=== PATIENT | female | born 1950 | race Caucasian/White ===

== ENCOUNTER → 2023-06-20 09:06 | Outpatient (REF) | payer MEDICARE, SELFPAY ==
[2023-06-20 10:48] LABS: ALT (SGPT) 23 U/L (0-35); AST (SGOT) 26 U/L (14-36); Albumin 4.2 g/dl (3.5-5.0); Alkaline Phosphatase 67 U/L (38-126); Blood Urea Nitrogen 21 mg/dl (7-17); Calcium 10.2 mg/dl (8.4-10.2); Carbon Dioxide 28 mmol/L (22-30); Chloride 101 mmol/L (98-107); Glucose 98 mg/dl (70-99); Potassium 4.6 mmol/L (3.5-5.1); Sodium 139 mmol/L (135-145); Total Bilirubin 0.8 mg/dl (0.2-1.3); Total Protein 7.2 g/dl (6.3-8.2); eGFR > 60.00
== END ==
LOC: REG 09:06
PROVIDERS: ATTENDING PHYSICIAN Internal Medicine
DX: K86.2 Cyst of pancreas (principal)
CPT/HCPCS: 36415; 80053

== ENCOUNTER → 2023-06-27 12:53 | Outpatient (REF) | payer MEDICARE, SELFPAY | LOC: HWWDC 12:53 | PROVIDERS: ATTENDING PHYSICIAN Internal Medicine | DX: Z12.31 Encounter for screening mammogram for malignant neoplasm of breast (principal) | CPT/HCPCS: 77063; 77067 ==

== ENCOUNTER → 2023-07-02 18:42 | Outpatient (REF) | payer MEDICARE, SELFPAY | LOC: MRI 3T 18:42 | PROVIDERS: ATTENDING PHYSICIAN Internal Medicine | DX: K86.2 Cyst of pancreas (principal) | CPT/HCPCS: 74183; A9575 ==

== ENCOUNTER → 2023-11-27 09:59 | Outpatient (REF) | payer MEDICARE, SELFPAY ==
[2023-11-27 11:19] LABS: % Basophils 1.5 % (0-2); % Immature Granulocytes 0.2 % (0-0.5); % Lymphocytes 31.6 % (20.5-51.1); % Monocytes 9.7 % (1.7-9.3); Absolute Basophils 0.1 10^3/uL (0-0.2); Absolute Eosinophils 0.1 10^3/uL (0-0.7); Absolute Lymphocytes 1.9 10^3/uL (1.2-3.4); Absolute Monocytes 0.6 10^3/uL (0.1-0.6); Absolute Neutrophils 3.2 10^3/uL (1.4-6.5); Hematocrit 44.6 % (37.0-47.0); Hemoglobin 15.4 g/dL (12.0-16.0); Mean Corp Hgb Conc. 34.5 g/dL (33.0-37.0); Mean Corpuscular Hgb 30.1 pg (27.0-31.0); Mean Corpuscular Volume 87.1 fL (81.0-99.0); Mean Platelet Volume 10.4 fL (7.4-10.4); Nucleated Red Blood Cells % 0 %; Platelet Count 332 10^3/uL (130-400); Red Blood Cell Count 5.12 10^6/uL (4.20-5.40); Red Cell Dist. Width 12.5 % (11.5-14.5); White Blood Cell Count 5.9 10^3/uL (4.8-10.8)
[2023-11-27 11:38] LABS: Glycohemoglobin (HgbA1c) 5.6 % (4.0-5.6)
[2023-11-27 11:51] LABS: ALT (SGPT) 22 U/L (0-35); AST (SGOT) 26 U/L (14-36); Albumin 4.6 g/dl (3.5-5.0); Alkaline Phosphatase 72 U/L (38-126); Blood Urea Nitrogen 14 mg/dl (7-17); Carbon Dioxide 28 mmol/L (22-30); Chloride 98 mmol/L (98-107); Glucose 102 mg/dl (70-99); HDL Cholesterol 90 mg/dl; LDL Cholesterol, Calculated 130 mg/dl; Potassium 4.3 mmol/L (3.5-5.1); Sodium 136 mmol/L (135-145); Total Bilirubin 0.7 mg/dl (0.2-1.3); Total Cholesterol 231 mg/dl (50-199); Total Protein 7.5 g/dl (6.3-8.2); Triglyceride 56 mg/dl (10-149); Very Low Density Lipoprotein 11 mg/dl (0-30); eGFR > 60.00
[2023-11-27 12:21] LABS: TSH Reflex To Free T4 1.96 uIU/ml (0.47-4.68)
== END ==
LOC: REG 09:59
PROVIDERS: ATTENDING PHYSICIAN Internal Medicine
DX: R73.9 Hyperglycemia, unspecified (principal); M85.89 Other specified disorders of bone density and structure, multiple sites; I10 Essential (primary) hypertension; E78.01 Familial hypercholesterolemia
CPT/HCPCS: 36415; 80053; 80061; 83036; 84443; 85025

== ENCOUNTER → 2024-04-26 07:18 | Outpatient (REF) | payer MEDICARE, SELFPAY | LOC: PAVMRI 07:18 | PROVIDERS: ATTENDING PHYSICIAN Physical Medicine & Rehabilitation; FAMILY PHYSICIAN Internal Medicine | DX: M54.16 Radiculopathy, lumbar region (principal) | CPT/HCPCS: 72148 ==

== ENCOUNTER 2024-06-04 08:52 | Inpatient (IN) | payer MEDICARE, SELFPAY ==
[2024-06-03 10:52] LABS: Hematocrit 42.6 % (37.0-47.0); Hemoglobin 14.3 g/dL (12.0-16.0); Mean Corp Hgb Conc. 33.6 g/dL (33.0-37.0); Mean Corpuscular Hgb 29.5 pg (27.0-31.0); Mean Platelet Volume 10.4 fL (7.4-10.4); Platelet Count 383 10^3/uL (130-400); Red Blood Cell Count 4.84 10^6/uL (4.20-5.40); Red Cell Dist. Width 13.1 % (11.5-14.5); White Blood Cell Count 8.3 10^3/uL (4.8-10.8)
[2024-06-03 13:27] VITALS: BMI 23.5
[2024-06-04] VITALS (13 sets, daily range): BP systolic 140–170; BP diastolic 83–100; BMI 23.5
[2024-06-04] MEDS: NORMOSOL-R/PLASMALYTE-A 1000 IV (09:33)
--- NOTE | 2024-06-04 17:45 | PTCARENOTE ---
Received patient from PACU in her bed, R leg brace on, foot pump on L foot. Patient AAO x 3, denies pain. Assessment WNL, + pedal pulses bilaterally. She appears anxious and will talk at an extended length seemingly to herself. Patient assisted to
use BSC - she urinated successfully, then assisted to chair for her dinner. Chair alarm is in place. Refused aspirin at this time, stating she will take it with food when dinner arrives.
[2024-06-04] MEDS: ASPIRIN 325 MG PO (18:42)
[2024-06-04] MEDS: SENOKOT 17.2 MG PO (19:52)
[2024-06-04] MEDS: COLACE 100 MG PO (19:52)
[2024-06-04] MEDS: TYLENOL PO ×2 (20:06→23:23)
[2024-06-04] MEDS: MELATONIN 3 MG PO (22:49)
[2024-06-04] MEDS: ULTRAM 50 MG PO (22:51)
[2024-06-05] MEDS: ATIVAN 0.5 MG PO (00:58)
[2024-06-05 03:10] VITALS: BP 153/81
--- NOTE | 2024-06-05 03:20 | PTCARENOTE ---
Pt very anxious, speech is very disordered and manic. At begining of shift pt asking about her tramadol and asking for melatonin to sleep. pt refusing to take tylenol or ordered oxy. Covering donnie Hong contacted and orders in for 50 mg tramadol Q6
prn for pain. Pt later asking about Ativan, she states she used to take it. Covering ALICIA Tapia contacted and order in for one time PO ativan. Pt using call garcias appropriately, OOB to void on BSC assist x 1 with RW.
[2024-06-05] MEDS: TYLENOL PO ×4 (04:12→15:22)
[2024-06-05 07:20] VITALS: BP 150/98
--- NOTE | 2024-06-05 07:34 | W.PN.ORTHO ---
Today's Communication / Plan
-
PT/OT this morning
Knee immobilizer at all times
Partial weightbearing right lower extremity
Aspirin for DVT prophylaxis
Consult social service liaison to coordinate visiting nurses at home
Skin clip removal 2 weeks postop
Discharge to home today (discussed plan with nursing)
Assessment
.
Distal Motor Intact: Yes
Dressing:
Clean, dry and intact.
Plan
.
Surgery / Date: ORIF right patella fracture 05/25 [facility]
DVT Prophylaxis: Aspirin
Activity:
Out of bed.
PT/OT
Discharge Plan: Home w/ VN
Subjective
.
.:
Patient resting comfortably.
Vital Signs and Labs
.
Vital Signs and Labs:
Lab Results
06/03/24 09:47
Temp Pulse Resp BP Pulse Ox
98.3 F 69 16 153/81 99
06/05/24 03:10 06/05/24 03:10 06/05/24 03:10 06/05/24 03:10 06/05/24 03:10
Physical Exam
-
Knee immobilizer in place
--- NOTE | 2024-06-05 07:37 | W.PN.UPDATE ---
Update Note
Progress Note Update
Pt seen and examined.
Disorganized thought process is at baseline
pain well controlled
brace intact
plan pt and d/c today, pwb RLE in knee immobilizer 100%, fu kindra ESTES in 2 weeks.
--- NOTE | 2024-06-05 07:46 | W.DS.TRANS ---
DC Summary - Deputy Chief Counsel
-
Discharge Instructions:
Sleep Apnea Risk Low
Discharge Diagnosis/Procedures Open reduction internal fixation right patellar
fracture 06/04 Vikoren
Diet As tolerated
Activity With assistance,With Walker
Additional Activity Partial weightbearing right lower extremity in
the knee immobilizer
Knee immobilizer at all time right lower
extremity
Driving Restrictions No driving
Bathing Restrictions OK to Shower
Other Services VN
Wound Care Leave dressing/knee immobilizer in place at all
times until skin clip removal
Instructions:
Stand-Alone Forms:
Changes to Home Medications: No
Discharge Medications:
DC Medications w/original date entered in [employer]
B-complex with vitamin C 1 cap PO DAILY 05/09/16
magnesium hydroxide 400 mg/5 mL oral suspension 30 ml PO DAILYPRN PRN constipation ##0 06/01/16
tramadol 50 mg tablet 1 - 2 tab PO Q6HPRN PRN pain #90 tabs 06/02/16
Fish Oil 1 cap PO DAILY 06/03/24
acetaminophen 325 mg tablet 650 mg PO PRN PRN pain 06/03/24
multivitamin 1 tab PO DAILY 06/03/24
vitamin E 1 cap PO DAILY 06/03/24
meloxicam 7.5 mg tablet 7.5 mg PO DAILY 06/04/24
aspirin 325 mg tablet 325 mg PO DAILY Blood clot prevention/tx 30 days #30 tabs 06/05/24
docusate sodium 100 mg capsule 100 mg PO BID Constipation 14 days #28 caps 06/05/24
sennosides 8.6 mg tablet (Kaela-nikhil) 17.2 mg (2 x 8.6 mg) PO BID Constipation 14 days #56 tabs 06/05/24
Home Medication Changes
Pending Results: No
[2024-06-05] MEDS: COLACE PO (08:12)
[2024-06-05] MEDS: ASPIRIN 325 MG PO (08:12)
[2024-06-05] MEDS: SENOKOT PO (08:12)
[2024-06-05 08:55] VITALS: BP 152/97; O2SAT 97
[2024-06-05 09:56] VITALS: BP 172/97; O2SAT 98
[2024-06-05] MEDS: ULTRAM 50 MG PO ×2 (15:41→22:34)
[2024-06-05 15:45] VITALS: BP 148/98
--- NOTE | 2024-06-05 16:49 | CM ---
Met with pt - altered cognitive functioning, confused
Spoke with
PT lives with her in a 2 story home
Needs direction with ADL's, ambulating without device
DME - rolling walker, single point cane
SNF - denies past hx
HH- denies past hx
PCP - Jairo Mccann
Pharm - [facility]
PT/OT recs - SNF
Discussed with . Has PAC list
Requesting [facility] and may send referrals to SNF near [place]
Referrals sent in [facility]
Plan - SNF when bed/auth obtained
[2024-06-05] MEDS: COLACE 100 MG PO (20:27)
[2024-06-05] MEDS: SENOKOT 17.2 MG PO (20:27)
[2024-06-05] MEDS: TYLENOL 650 MG PO (20:27)
[2024-06-05 23:24] VITALS: BP 142/83
[2024-06-06] MEDS: TYLENOL PO ×4 (01:00→12:00)
--- NOTE | 2024-06-06 07:24 | W.PN.ORTHO ---
Today's Communication / Plan
-
PT/OT
Knee immobilizer at all times
Partial weightbearing right lower extremity
Aspirin for DVT prophylaxis x4 weeks
Skin clip removal 2 weeks postop
Maintain dressing
Recommended for SNF. Case Management consulted. Discharge when bed/auth obtained.
Assessment
.
Distal Motor Intact: Yes
Dressing:
Clean, dry and intact.
Plan
.
Surgery / Date: ORIF right patella fracture 05/25 [facility]
DVT Prophylaxis: Aspirin
Activity:
Out of bed.
PT/OT
Subjective
.
.:
Patient resting comfortably in bed
Vital Signs and Labs
.
Vital Signs and Labs:
Lab Results
06/03/24 09:47
Temp Pulse Resp BP Pulse Ox
98.5 F 72 18 142/83 96
06/05/24 23:24 06/05/24 23:24 06/05/24 23:24 06/05/24 23:24 06/05/24 23:24
Physical Exam
-
Knee immobilizer in place
[2024-06-06 07:50] VITALS: BP 151/98
[2024-06-06] MEDS: ASPIRIN 325 MG PO (08:40)
[2024-06-06] MEDS: SENOKOT PO (08:43)
[2024-06-06] MEDS: COLACE PO (08:43)
--- NOTE | 2024-06-06 10:11 | CM ---
CM following re: discharge planning.
Reviewed pt's chart, met with pt and spoke to pt's over the phone to update on discharge plan progress.
Discharge order noted. Both pt and her are aware, expressed their agreement with discharge. IMM reviewed, placed on chart, pt has a copy.
Both pt and her are aware that [facility] and [facility] offered a bed and pt and her preferred [facility].
CM spoke to [facility] liaison and she confirmed that [facility] has a [place] available and pt is accepted for admission today: [facility] . Accepting MD Coulter [id number]
An authorization initiated with [facility] care and community, , spoke to ambulatory service representative Brianna, clinical provided to Lora and based on pt's clinical, pt is approved for SNF level of care at [facility] for 5 initial days
starting today 06/06/24 till 06/10/24 with LCD and NRD 06/10/24. reviewer fax: [phone]. Authorization: [id number]. Auth information given to [facility] liaison.
to arrange transportation, BLS. PMNC completed and left with .
[facility] SN[facility] nursing repprt: [phone]
Discharge instructions fax: [phone]
D/C plan: [facility] today.
[2024-06-06 13:10] VITALS: BP 161/92
[2024-06-06] MEDS: ULTRAM 50 MG PO (13:18)
== END 2024-06-06 14:03 | DRG 517 ==
LOC: 2 SOUTH 08:52
PROVIDERS: ADMITTING PHYSICIAN Orthopaedic Surgery; FAMILY PHYSICIAN Internal Medicine
PROC: 0QSD04Z Reposition Right Patella with Internal Fixation Device, Open Approach (ICD-10-PCS; 2024-06-05)
DX: S82.041A Displaced comminuted fracture of right patella, initial encounter for closed fracture (principal); W18.30XA Fall on same level, unspecified, initial encounter
CPT/HCPCS: 36415; 73560; 76000; 85027; 93005; 97116; 97163; 97167

== ENCOUNTER 2025-02-25 01:08 | Emergency (ER) | payer MEDICARE, SELFPAY ==
--- NOTE | 2025-02-25 02:22 | DOWNTIME ---
There was a [employer] Downtime on 02/25/2025 from 0100 to 02/25/2025 at 0215. Downtime documentation of patient's care, including medication administrations, has been reconciled in the electronic record per guidelines. Refer to the
patient's paper chart under the miscellaneous tab to see printed paper medication records and downtime forms.
[2025-02-25 02:26] VITALS: BP 173/106
[2025-02-25 02:32] LABS: ALT (SGPT) 23 U/L (0-35); AST (SGOT) 22 U/L (14-36); Albumin 4.3 g/dl (3.5-5.0); Alkaline Phosphatase 64 U/L (38-126); Blood Urea Nitrogen 21 mg/dl (7-17); Calcium 9.9 mg/dl (8.4-10.2); Carbon Dioxide 27 mmol/L (22-30); Chloride 101 mmol/L (98-107); Glucose 105 mg/dl (70-99); Potassium 4.0 mmol/L (3.5-5.1); Sodium 132 mmol/L (135-145); Total Protein 7.1 g/dl (6.3-8.2); eGFR > 60.00
[2025-02-25 02:38] LABS: Hematocrit 41.9 % (37.0-47.0); Hemoglobin 14.4 g/dL (12.0-16.0); Mean Corp Hgb Conc. 34.4 g/dL (33.0-37.0); Mean Corpuscular Volume 88.4 fL (81.0-99.0); Nucleated Red Blood Cells % 0 %; Platelet Count 358 10^3/uL (130-400); Red Cell Dist. Width 12.7 % (11.5-14.5)
[2025-02-25 04:06] LABS: Urine Character Clear (Clear)
[2025-02-25 04:14] LABS: Urine Red Blood Cell 0-2 /HPF (0-2); Urine Squamous Cell 0-2 /LPF (Few); Urine White Cell 0-2 /HPF (0-5)
--- NOTE | 2025-02-25 04:43 | ED.GENMED ---
History of Present Illness
General
Chief Complaint: Abdominal Pain
Source: patient
Exam Limitations: none
Time Seen by Provider: 02/25/25 02:44
Nursing documentation reviewed up to this point in time: agreed with
History of Present Illness
History of Present Illness:
Note:
CHIEF COMPLAINT(S)
Confusion
HISTORY OF PRESENT ILLNESS
History is extremely limited as patient is not making sense.
CHRONIC MEDICAL CONDITIONS SIGNIFICANTLY AFFECTING CARE
Spinal stenosis.
Multiple psychiatric admissions for psychosis and psychotic breaks. She does have depression. According to family there was an alcohol problem.
SOCIAL DETERMINANTS AFFECTING HEALTH
The patient mentions living with her and former experiences at a rehabilitation facility. Concerns about insurance coverage were raised by her , affecting her perception of care and support decisions.
MENTAL STATUS
The patient displayed confusion during the conversation, evidenced by rambling speech and difficulty maintaining focus on the questions asked by the interviewer, suggesting possible cognitive impairment. She demonstrated confusion about the current
year, indicating a possible disorientation to time.
PHYSICAL EXAM
General: Alert but confused, no acute distress. Walking around the room with a walker
Skin: Warm, dry.
Head: Normocephalic, atraumatic.
Neck: Supple, trachea midline.
Eye, Ears, Nose, Mouth, and Throat: Oral mucosa moist.
Cardiovascular: Normal peripheral perfusion, No edema.
Respiratory: Respirations are non-labored.
Gastrointestinal: Abdomen is nondistended.
Back: Normal range of motion, Normal alignment.
Musculoskeletal: Normal ROM, normal strength.
Neurological: Alert but disoriented as evidenced by confusion about the current year, No focal neurological deficit observed.
Psychiatric: somewhat Cooperative, appropriate mood but confused.
PLAN
- Urinalysis to assess the concentration and rule out potential infection or other issues related to urinary symptoms.
- Consideration for further psychological or cognitive evaluation due to confusion and disorientation.
- Pain management strategy reviewing current medications that may have been prescribed by Dr. Ryan, including the use of aspirin.
DIFFERENTIAL DIAGNOSIS
The Differential Diagnosis includes, in no particular order and is not limited to:
1. Psychotic break
2. Urinary Tract Infection
3. Dehydration
4. Cognitive Impairment or Dementia
5. Musculoskeletal Strain
6. Osteoporosis-related pain
7. Depression
8. Sundowning
9. Acute Pain Syndrome
10. Medication-Induced Confusion
CARE-UPDATE
02/25/25 - 04:18
Attempts to reach the patients spouse and family members have been unsuccessful. No new information from family has been obtained at this time.
CARE-UPDATE
02/25/25 - 04:43
Patient exhibits confusion characterized by rambling speech, likely due to sundowning. Continue monitoring mental status, particularly in the evening hours, and consider implementing strategies to alleviate sundowning symptoms, such as maintaining a
consistent daily routine and providing appropriate lighting.
CARE-UPDATE
02/25/25 - 07:02
Contact established with patients estranged daughter, who provided history of alcohol use and depression with psychotic episodes, with multiple admissions to [facility] crisis. Patients expected at facility within an hour for further family
support, despite previous communication difficulties. Psychiatry and crisis consultations initiated.
Past History
Past History
ED Past Medical History: Other (Chronic neck and back pain, irritable bowel syndrome, diverticulosis, osteoporosis, osteoarthritis)
ED Past Surgical History: Orthopedic (Cervical fusion, lumbar disc removal)
Social History
Tobacco: Non-smoker
Alcohol: None
Personal:
Living: with family
Employment: Employed
Family History
Family History: Other
Phy Exam
Physical Exam
Physical Exam:
.
Course
Orders/Labs/Results
Orders:
Orders
02/25/25
Electrocardiogram (*1) Stat
Reason for Study: Chest Pain
Comment: DONE
02/25/25 01:25
Alcohol Urgent
Complete Blood Count/With Diff Urgent
Comprehensive Metabolic Panel Urgent
02/25/25 02:27
CT Head W/o Iv Contrast Urgent
Comment:
Reason For Exam: confusion
02/25/25 03:47
Urinalysis Reflex To Culture Urgent
Date Specimen was Collected: 02/25/25
Time Specimen was Collected: 03:41
Urine Microscopic Reflex Cult Urgent
02/25/25 05:22
EKG [Electrocardiogram (*1)] Urgent
Reason for Study: Fatigue / Weakness
EKG- Treatment ONCE
02/25/25 06:48
Case Management Consult ONCE
Case Management Consult: Discharge Planning
Comment: pt confused, Multiple attempts to speak with family limited. Son states that she has had episodes
like this before
02/25/25 06:57
PSYCHIATRY CONSULT Urgent
Consulting Provider: Juan Fernandez
Was physician already notified: No
Reason for consult: psychosis
Crisis Consult Urgent
Reason for Consult: psychosis
02/25/25 06:59
Consult Notification Routine
Specialty to Notify: Psychiatry
02/25/25 07:00
Add On- LAB Urgent
Tests Added?: alcohol
Abnormal Lab Results
02/25/25 02/25/25
01:25 03:47
Absolute Monos (auto) 1.0 H 10^3/uL
(0.1-0.6)
Monocytes % 11.8 H %
(1.7-9.3)
Sodium 132 L mmol/L
(135-145)
BUN 21 H mg/dl
(7-17)
Creatinine 0.5 L mg/dL
(0.6-1.0)
Glucose 105 H mg/dl
(70-99)
Urine Ketones 1+ A
(Negative)
Ur Occult Blood Reflex 1+ A
(Negative)
Urine Bacteria (Reflex) Few A
(Negative)
02/25/25 01:25
02/25/25 01:25
Vital Signs
Initial and Last Documented VS:
Initial Vital Signs
Pulse Resp BP
69 18 173/106
02/25/25 02:26 02/25/25 02:26 02/25/25 02:26
Last Documented Vital Signs
Temp Pulse Resp BP Pulse Ox
97.8 F 81 16 163/101 97
02/25/25 13:03 02/25/25 17:03 02/25/25 17:03 02/25/25 17:03 02/25/25 17:03
*Pulse Oximetry
Patient hypoxic: no
*Critical Care Note
Total Time (30-74mins, 75-104mins- exclusive of procedures): Not Applicable
ED Attending Note
-
Portions of this chart may have been created with voice recognition software.� Occasional wrong word or��sound alike� substitutions may have occurred due to the inherent limitations of voice recognition software.
Discharge Plan
Departure
Prescriptions:
No Action
B-complex with vitamin C 1 CAPLET tablet
1 cap PO DAILY
magnesium hydroxide 30 ML suspension
30 ml PO DAILYPRN PRN (Reason: constipation) Qty: 0 0RF
tramadol 50 MG tablet
1 - 2 tab PO Q6HPRN PRN (Reason: pain) Qty: 90 0RF
multivitamin Tablet
1 tab PO DAILY
Fish Oil
1 cap PO DAILY
vitamin E
1 cap PO DAILY
acetaminophen 325 MG tablet
650 mg PO PRN PRN (Reason: pain)
meloxicam 7.5 mg Tablet
7.5 mg PO DAILY
sennosides [Kaela-nikhil] 8.6 mg Tablet
17.2 mg PO BID 14 Days Qty: 56 0RF
aspirin 325 mg Tablet
325 mg PO DAILY 30 Days Qty: 30 0RF
docusate sodium 100 mg Capsule
100 mg PO BID 14 Days Qty: 28 0RF
Referrals:
Jairo Mccann I., DO [Family Provider, Internal Medicine]
Interventions
Interventions:
*Risk Screen - Suicide Last Done: 02/25/25 12:24
*General Assessment Last Done: 02/25/25 07:47
*Neglect/Abuse Screening Last Done: 02/25/25 12:24
*ED- Fall Risk Assessment Last Done: 02/25/25 18:49
*ED COVID-19 Vaccine History Last Done: 02/25/25 07:47
*ED Influenza Vaccine History Last Done: 02/25/25 07:47
*Nursing Disposition Last Done: 02/25/25 18:49
CO-Vhnxwy-Jbphvnewcp Assessment Last Done: 02/25/25 02:24
Discharge Date and Time
Discharge Date/Time: 02/25/25 18:50
Print Language: MOHAWK
[2025-02-25 06:17] VITALS: BP 187/102
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
--- NOTE | 2025-02-25 11:28 | EDCM ---
CM received consult and reviewed chart. Pt was seen by Crisis and Dr Fernandez, signed 201. Crisis working on inpatient placement.
No CM needs at this time. Will continue to follow while in ED.
[2025-02-25 13:03] VITALS: BP 165/103
[2025-02-25 17:03] VITALS: BP 163/101
== END 2025-02-25 18:50 ==
LOC: EMR 01:08
PROVIDERS: CONSULT PHYSICIAN Psychiatry & Neurology Psychiatry; EMERGENCY PHYSICIAN Student in an Organized Health Care Education/Training Program; FAMILY PHYSICIAN Internal Medicine
DX: F25.0 Schizoaffective disorder, bipolar type (principal); K58.9 Irritable bowel syndrome, unspecified; M48.00 Spinal stenosis, site unspecified; M81.0 Age-related osteoporosis without current pathological fracture; M19.90 Unspecified osteoarthritis, unspecified site; M54.50 Low back pain, unspecified; M54.2 Cervicalgia; G89.29 Other chronic pain; Z96.649 Presence of unspecified artificial hip joint
CPT/HCPCS: 99285; 70450; 80053; 81003; 81015; 82077; 85025; 93005

== ENCOUNTER → 2025-04-17 11:18 | Outpatient (REF) | payer MEDICARE, SELFPAY ==
[2025-04-17 12:26] LABS: Hematocrit 45.4 % (37.0-47.0); Hemoglobin 15.1 g/dL (12.0-16.0); Mean Corp Hgb Conc. 33.3 g/dL (33.0-37.0); Mean Corpuscular Volume 88.5 fL (81.0-99.0); Nucleated Red Blood Cells % 0 %; Platelet Count 213 10^3/uL (130-400); Red Cell Dist. Width 12.7 % (11.5-14.5)
[2025-04-17 13:01] LABS: ALT (SGPT) 23 U/L (0-35); AST (SGOT) 24 U/L (14-36); Albumin 4.8 g/dl (3.5-5.0); Alkaline Phosphatase 85 U/L (38-126); Blood Urea Nitrogen 26 mg/dl (7-17); Calcium 10.1 mg/dl (8.4-10.2); Carbon Dioxide 27 mmol/L (22-30); Chloride 102 mmol/L (98-107); Glucose 88 mg/dl (70-99); HDL Cholesterol 84 mg/dl; LDL Cholesterol, Calculated 129 mg/dl; Potassium 4.2 mmol/L (3.5-5.1); Sodium 136 mmol/L (135-145); Total Protein 7.8 g/dl (6.3-8.2); Very Low Density Lipoprotein 10 mg/dl (0-30); eGFR > 60.00
[2025-04-17 13:42] LABS: Glycohemoglobin (HgbA1c) 5.6 % (4.0-5.9)
== END ==
LOC: REG 11:18
PROVIDERS: ATTENDING PHYSICIAN Internal Medicine
DX: R73.9 Hyperglycemia, unspecified (principal); K58.9 Irritable bowel syndrome, unspecified; F31.9 Bipolar disorder, unspecified; I10 Essential (primary) hypertension
CPT/HCPCS: 36415; 80053; 80061; 83036; 84443; 85025